=== PATIENT | male | born 1990 | race Caucasian/White ===

== ENCOUNTER → 2018-05-29 | Emergency (ER) | payer SELFPAY ==
[~2018-05-29] VITALS: Ht 177.8 cm; Wt 113.6 kg
[~2018-05-29] MED LIST: KETOROLAC10 MG PO; NORVASC 5MG5 MG/TAB PO
[2018-05-29 15:45] VITALS: BP 177/114
== END | disposition home or self-care (01) ==
LOC: ED 14:07
DX: S93.401A Sprain of unspecified ligament of right ankle, initial encounter (principal); I10 Essential (primary) hypertension; W11.XXXA Fall on and from ladder, initial encounter; Y92.008 Other place in unspecified non-institutional (private) residence as the place of occurrence of the external cause